=== PATIENT | female | born 1965 ===

== ENCOUNTER 2025-03-04 05:13 | Day surgery (SDC) | payer OTHER ==
[2025-03-04] MEDS ORDERED: CEFAZOLIN SODIUM 1,000 MG VIAL ONE (07:00)
[2025-03-04] MEDS ORDERED: POVIDONE-IODINE 118 ML BOTT TOP ONE (07:14)
[2025-03-04] MEDS ORDERED: MORPHINE SULFATE 4 MG/ML VIAL IV ONE (10:30)
== END 2025-03-04 11:25 | disposition home or self-care (01) ==
LOC: CIR.AMB 05:13
PROVIDERS: ATTEND Obstetrics & Gynecology
DX: N84.0 Polyp of corpus uteri (principal)